=== PATIENT | female | born 1950 | race Caucasian/White ===

== ENCOUNTER 2019-05-07 06:19 | Day surgery (SDC) | payer MEDICARE ==
[~2019-05-07] VITALS: Ht 162.6 cm; Wt 59.0 kg
[~2019-05-07 06:19] MED LIST: AMOX1TAB61 PO; ATOR40TA PO; BUPIVACAINE-EPI 0.25%-1:200000 MPF 30 ML VIAL. INJ ONE; CHOL10003 PO; CYAN-25 PO; DULO60CA6 PO; MELO7.5T29 PO; MIDO10TA PO; MULT1TAB52 PO; OXYC1TAB19 PO; TIZA4TAB2 PO; TRAM50TA PO; TRAZ-118 PO
[2019-05-07] MEDS ORDERED: PROCHLORPERAZINE 10 MG/2 ML VIAL. IV PRN (07:00)
[2019-05-07] MEDS ORDERED: fentaNYL PF VIAL 100 MCG/2 ML VIAL IV PRN (07:00)
[2019-05-07] MEDS ORDERED: IV RINGERS,LACTATED 1000ML 1,000 ML IV SCH (07:00)
[2019-05-07] MEDS ORDERED: HYDROmorphone 2 MG/ML VIAL IV PRN (07:00)
[2019-05-07] MEDS ORDERED: LIDOCAINE 1% PF 2 ML VIAL. ID PRN (07:00)
[2019-05-07] MEDS ORDERED: ONDANSETRON PF 4 MG/2 ML VIAL. IV PRN (07:00)
[2019-05-07] MEDS ORDERED: MORPHINE SULFATE 2 MG/ML VIAL. IV PRN (07:00)
[2019-05-07] MEDS ORDERED: SURGICEL HEMOSTAT 4X8 EACH. ONE (07:18)
[2019-05-07 07:30] LABS: CALCIUM 9.5 mg/dL (8.5-10.1); CREATININE 0.8 mg/dL (0.6-1.0); GFR 71.8
[2019-05-07] MEDS ORDERED: FAMOTIDINE 20 MG/2 ML VIAL ONE (07:31)
[2019-05-07] MEDS ORDERED: PROPOFOL 20 ML IV ONE (07:31)
[2019-05-07] MEDS ORDERED: LIDOCAINE 2% PF 5 ML VIAL. ONE (07:31)
[2019-05-07] MEDS ORDERED: ROCURONIUM 50 MG/5 ML VIAL. ONE (07:32)
[2019-05-07] MEDS ORDERED: MIDAZOLAM HCL/PF 2 MG/2 ML VIAL. ONE (07:32)
[2019-05-07] MEDS ORDERED: fentaNYL PF VIAL 100 MCG/2 ML VIAL ONE (07:32)
[2019-05-07] MEDS ORDERED: ONDANSETRON PF 4 MG/2 ML VIAL. ONE (07:32)
[2019-05-07] MEDS ORDERED: BUPIVACAINE-EPI 0.25%-1:200000 MPF 30 ML VIAL. INJ ONE (08:00)
[2019-05-07] MEDS ORDERED: NEOSTIGMINE METHYLSULFATE 5 MG/5 ML SYRINGE. ONE (08:32)
[2019-05-07] MEDS ORDERED: GLYCOPYRROLATE 1 MG/5 ML VIAL. ONE (08:32)
--- NOTE | 2019-05-07 08:45 | PDOC ---
BRIEF OPERATIVE NOTE Date: May 07, 2019 Pre-Op Diagnosis Bilateral Ovarian Cysts Post-Op Diagnosis Same Procedure Performed [facility] BSO Surgeon Dr. Castillo Anesthesia Type: General Blood Loss 5 ml Specimens Obtained torsten. fallopian tubes and ovaries Findings Torsten. ovarian cysts Complications none Operative Note see dictation AILIN CASTILLO Jr, MD May 07, 2019 08:45
--- NOTE | 2019-05-07 08:46 | DISCH ---
DISCHARGE INSTRUCTIONS Condition on Discharge Condition on Discharge: Stable Activity After Discharge Activity Instructions for Disc: Activity as tolerated Lifting Instructions after Dis: No heavy lifting Driving Instructions after Dis: Do not drive today Diet after Discharge Diet after Discharge: Regular Contacting the [facility] after DC Call your doctor for: Concerns you may have Follow-Up Follow up with: Dr. Holley in 1 wk AILIN HOLLEY Jr, MD May 07, 2019 08:46
[2019-05-07] MEDS: fentaNYL PF VIAL 100 MCG/2 ML VIAL IV PRN ×4 (08:55→09:15)
[2019-05-07] MEDS ORDERED: oxyCODONE/APAP 5/325 1 TAB TABLET PO ONE (09:15)
--- NOTE | 2019-05-07 09:23 | OP ---
DATE OF SURGERY: PREOPERATIVE DIAGNOSIS: Bilateral ovarian cysts. POSTOPERATIVE DIAGNOSIS: Bilateral ovarian cysts. PROCEDURE: Laparoscopic BSO. SURGEON: Dr. Castillo. ANESTHESIA: GETA. ESTIMATED BLOOD LOSS: 5 mL. COMPLICATIONS: None. FINDINGS: Bilateral ovarian cysts between size of 2 and 3 cm size. COMPLICATIONS: None. SUMMARY: A 68-year-old female with persistent bilateral ovarian cysts, requiring laparoscopic BSO. She was counseled on the risks, benefits and expectations and voiced clear understanding to proceed. DESCRIPTION OF PROCEDURE: The patient was taken to surgery suite and placed in dorsal lithotomy position, was prepped with Betadine solution for vaginal prep and ChloraPrep for abdominal prep. After adequate anesthesia, bivalved speculum was placed vaginally. Anterior lip of the cervix grasped with single tooth tenaculum. The uterine acorn manipulator was then placed. The bivalved speculum was then removed. Attention was now placed on abdomen. Small transverse skin incision was made just below the umbilicus with a scalpel. The Veress needle was then placed through the 5 mm infraumbilical site. The abdomen was allowed to insufflate up to 1-1/2 liter of CO2 gas. The Veress needle was then removed, 5 mm trocar was placed. The scope was positioned. The uterus was normal size. Fallopian tubes appeared normal bilaterally. Both ovaries were visualized and demonstrated ovarian cysts on them. The right ovary demonstrated a 3.5 cm cyst. The left ovary demonstrated 2-cm cyst. Two additional incisions were made, one in the left lower quadrant, in which a 5-mm trocar was placed and one at the midline 2 fingerbreadths above the pubic symphysis in which a 12-mm trocar was placed. With aid of graspers and the EnSeal device, the right infundibulopelvic ligament was coagulated and dissected. The right fallopian tube and ovary was then dissected away from the pelvic sidewall. The right utero-ovarian pedicle was then coagulated and dissected. The right fallopian tube and ovary was then placed in the anterior cul-de-sac. The same process took place with the left adnexa. Endobag was then placed and both fallopian tubes and ovaries were then removed with Endobag. Suction irrigation was utilized to verify good hemostasis. There was a small amount of normal saline that was left in posterior cul-de-sac. The trocars were then removed under direct visualization. The abdomen was allowed to deflate as much as possible. The 12 mm trocar site was closed at the fascial layer using 2-0 Vicryl suture in [id number] manner. The three skin incisions were closed at the skin level using 4-0 Vicryl suture in subcuticular manner. A 0.25% Marcaine with epinephrine was injected at each incision site. Uterine acorn manipulator and single tooth tenaculum were then removed. The patient tolerated the procedure well and was taken to recovery room in stable condition. Sponge and needle count correct x 3. AILIN CASTILLO MD DR: YOLA/maria JOB#: [id number] / [id number]
[2019-05-07 09:33] VITALS: BP 103/33
--- NOTE | 2019-05-08 22:06 | PATHOLOGY ---
[facility] Accession Number: [id number] . 01 Material submitted: . PART A: ovary - RIGHT FALLOPIAN TUBE AND OVARY. Modifiers: right PART B: ovary - LEFT FALLOPIAN TUBE AND OVARY. Modifiers: left . 01 Clinical history: . Bilateral ovarian cysts. . 02 Diagnosis: A. "Right fallopian tube and ovary", salpingo-oophorectomy: - Ovary, right, with multiloculated benign serous cystadenoma, corpora albicantia and endosalpingiosis. - Fallopian tube, right, with paratubal cyst. . B. "Left fallopian tube and ovary", salpingo-oophorectomy: - Ovary, left, with benign serous cystadenoma, corpora albicantia and endosalpingiosis. - Fallopian tube, left, with minimal histologic alterations. . (CLW:lexi; 05/08/2019) [facility] 05/08/2019 1621 Local . 02 Electronically signed: . Raquel Zhou MD, Pathologist NPI- [id number] . 01 Gross description: . A. Received in formalin labeled "Amber Quezada, right fallopian tube and ovary" is a salpingo-oophorectomy consisting of a pink-watson fimbriated fallopian tube measuring 6.2 cm in length and 0.6 cm in diameter. The fallopian tube is sectioned to reveal a pinpoint lumen. Attached to the fallopian tube is a 4 g, 2.5 x 2.2 x 1.3 cm watson-white cerebriform ovary. The ovary is sectioned to reveal multiple thin-walled simple cysts ranging from 0.7-1.3 cm in greatest dimension. No solid areas or papillary excrescences are grossly identified. Machine [employer] Machinery Mechanic sections are submitted as follows: A1 it sales representative fallopian tube A2-A3 it sales representative ovary . B. Received in formalin labeled "Amber Quezada, left fallopian tube and ovary" is a salpingo-oophorectomy specimen consisting of a pink-watson and graded fallopian tube measuring 7.7 cm in length and 0.5 cm in diameter. The fallopian tube is sectioned to reveal a pinpoint lumen. Attached to the fallopian tube is a 2 g, 2.0 x 1.3 x 0.7 cm watson-white cerebriform ovary. The ovary is sectioned to reveal a watson-white homogeneous cut surface and multiple thin-walled simple cysts ranging from 0.1-0.3 cm in greatest dimension. No solid areas or papillary excrescences are identified. Machine Or Machinery Mechanic sections are submitted as follows: B1 it sales representative fallopian tube B2-B3 entire ovary ([facility]; 05/07/2019) [facility] 05/07/[address] [facility] Local . 02 Pathologist provided ICD-10: D27.0, D27.1 . 02 CPT . 755315, 228117 Specimen Comment: A courtesy copy of this report has been sent to Specimen Comment: [phone], . Specimen Comment: Report sent to / DR DOWNS Performed at: 01 [facility] [address] [facility] [address] [place], [place] [id number] MD Segundo Eason MD Phone: [phone] Performed at: 02 [facility] [address] [place], [place] [id number] MD Arden Tucker MD Phone: [phone]
== END 2019-05-07 09:50 | disposition home or self-care (01) ==
LOC: SURG 06:19
PROVIDERS: ATTEND Obstetrics & Gynecology
DX: D27.1 Benign neoplasm of left ovary (principal); D27.0 Benign neoplasm of right ovary; E78.00 Pure hypercholesterolemia, unspecified; M79.7 Fibromyalgia; N83.8 Other noninflammatory disorders of ovary, fallopian tube and broad ligament; F32.9 Major depressive disorder, single episode, unspecified; Z86.010 Personal history of colon polyps; Z87.442 Personal history of urinary calculi; Z98.890 Other specified postprocedural states
CPT/HCPCS: 36415; 58661; 80048; 88307; A7015; J0690; J2001; J2250; J2405; J2704; J2710; J3010; J3490; J7030; J7120